=== PATIENT | female | born 2000 | race Caucasian/White ===

== ENCOUNTER 2021-01-01 15:53 | Emergency (ER) | payer BC ==
[2021-01-01 16:01] VITALS: BP 124/87; PULSE 94; RESP 18; TEMP 98.2
--- NOTE | 2021-01-01 16:24 | ED ---
General Adult HPI - General Chief complaint: ENT Stated complaint: food stuck in throat Time Seen by Provider: 01/01/21 16:09 Source: patient Mode of arrival: ambulatory Limitations: no limitations - History of Present Illness Initial comments: Dictation was produced using [employer] dictation software. please excuse any grammatical, word or spelling errors. Chief Complaint: 20-year-old female presents with foreign body sensation in the throat History of Present Illness: 20-year-old female she was making old male for her and her mother. She could've some apples. She saw the apples and felt like the apples are stuck in her throat. She tried drinking water, using water and drinking pop with no improvement. She states that her voice feels slightly scratchy. She went to the [facility] urgent care and was told to come to the emergency department for evaluation. Patient has any drooling. Denies any trouble breathing. She feels as though the apples are stuck in the area of her neck. The ROS documented in this emergency department record has been reviewed and confirmed by me. Those systems with pertinent positive or negative responses have been documented in the HPI. All other systems are other negative and/or noncontributory. PHYSICAL EXAM: General Impression: Alert and oriented x3, not in acute distress HEENT: Normocephalic atraumatic, extra-ocular movements intact, pupils equal and reactive to light bilaterally, mucous membranes moist. Cardiovascular: Heart regular rate and rhythm Chest: Able to complete full sentences, no retractions, no tachypnea Abdomen: abdomen soft, non-tender, non-distended, no organomegaly Musculoskeletal: Pulses present and equal in all extremities, no peripheral edema Motor: no focal deficits noted Neurological: CN II-XII grossly intact, no focal motor or sensory deficits noted Skin: Intact with no visualized rashes Psych: Normal affect and mood ED course: 20-year-old female presents to the emergency department for foreign body sensation in the throat. Barium swallow study shows shows normal esophagram, no foreign bodies identified. We do not have GI or ENT available at our facility. Patient would likely benefit from upper endoscopy. Case is discussed with general surgeon on-call who recommended swallow study performed by radiology department. esophagram, swallow study is unremarkable. Patient reevaluated at bedside and found to be in stable medical condition. Disposition options were discussed with patient. She states that she is agreeable for discharge and will return if she has any worsening symptoms. She is given outpatient referral to gastroenterology if she would like to be evaluated. Return precautions discussed. Patient told to monitor her symptoms. - Related Data Home Medications Medication Instructions Recorded Confirmed No Known Home Medications 01/01/21 01/01/21 Allergies Allergy/AdvReac Type Severity Reaction Status Date / Time No Known Allergies Allergy Verified 01/01/21 17:13 Review of Systems ROS Statement: Those systems with pertinent positive or pertinent negative responses have been documented in the HPI. ROS Other: All systems not noted in ROS Statement are negative. Past Medical History Past Medical History: No Reported History History of Any Multi-Drug Resistant Organisms: None Reported Past Surgical History: No Surgical Hx Reported Past Psychological History: Anxiety Smoking Status: Current every day smoker Past Alcohol Use History: Occasional Past Drug Use History: Marijuana General Exam Limitations: no limitations Course Vital Signs 01/01/21 15:58 Temperature 98.2 F Pulse Rate 94 Respiratory 18 Rate Blood Pressure 124/87 O2 Sat by Pulse 99 Oximetry Disposition Clinical Impression: Sensation of foreign body in esophagus Disposition: HOME SELF-CARE Condition: Fair Instructions (If sedation given, give patient instructions): Esophageal Foreign Body (ED) Additional Instructions: Please seek immediate medical attention if her symptoms get worse. Follow up with GI or primary care doctor if your symptoms get worse. Is patient prescribed a controlled substance at d/c from ED?: No Referrals: Alabnia Schaeffer MD [STAFF PHYSICIAN] - 1-2 days Ruth Gonzalez MD [STAFF PHYSICIAN] - 1-2 days
--- NOTE | 2021-01-01 17:54 | FL ---
EXAMINATION TYPE: FL barium swallow DATE OF EXAM: 01/01/2021 COMPARISON: None HISTORY: Ate Apple feels like it stuck TECHNIQUE: A single water-soluble contrast esophagram study is performed. FINDINGS: Fluoroscopy time: 32 seconds Images: 11 Esophagus dilates normal caliber and has normal contour the gastroesophageal junction. Gastroesophage al junction opens to a normal caliber. No intraluminal or extramural defects are evident. No filling defects are identified. Contrast passes through without hesitancy. IMPRESSIONS: 1. Normal Esophagram. No foreign bodies identified.
== END 2021-01-01 18:10 | disposition home or self-care (01) ==
LOC: EC 15:53
DX: R09.89 Other specified symptoms and signs involving the circulatory and respiratory systems (principal); F17.200 Nicotine dependence, unspecified, uncomplicated; F12.90 Cannabis use, unspecified, uncomplicated
CPT/HCPCS: 74220; 99283

== ENCOUNTER 2022-10-16 17:24 | Emergency (ER) | payer BC, OTHER ==
[2022-10-16 18:20] VITALS: BP 125/88; PULSE 99; RESP 20; TEMP 97.9
[2022-10-16] MEDS ORDERED: KETOROLAC 15 MG/ML 1 ML VIAL IM STA (18:47)
[2022-10-16] MEDS ORDERED: DEXAMETHASONE SOD PHOSPHATE 10 MG/ML 1 ML VIAL IM STA (18:47)
--- NOTE | 2022-10-16 19:15 | XR ---
EXAMINATION TYPE: XR chest 2V DATE OF EXAM: 10/16/2022 7:02 PM COMPARISON: None TECHNIQUE: XR chest 2V Frontal and lateral views of the chest. CLINICAL INDICATION:Female, 22 years old with history of chest pain; FINDINGS: Lungs/Pleura: There is no evidence of pleural effusion, focal consolidation, or pneumothorax. Pulmonary vascularity: Unremarkable. Heart/mediastinum: Cardiomediastinal silhouette is unremarkable. Musculoskeletal: No acute osseous pathology. IMPRESSION: No acute cardiopulmonary disease/process.
[2022-10-16] MEDS ORDERED: KETOROLAC 15 MG/ML 1 ML VIAL IVP STA (19:32)
[2022-10-16] MEDS ORDERED: DEXAMETHASONE SOD PHOSPHATE 10 MG/ML 1 ML VIAL IVP STA (19:32)
[2022-10-16 19:48] LABS: Basophils % (A) 1 %; Eosinophils # (A) 0.1 k/uL (0-0.7); Eosinophils % (A) 2 %; HCT 41.9 % (34.0-46.0); HGB 13.6 gm/dL (11.4-16.0); Lymphocytes % (A) 29 %; MCH 30.2 pg (25.0-35.0); MCHC 32.5 g/dL (31.0-37.0); MCV 92.9 fL (80.0-100.0); Mean Platelet Volume 8.5; Monocytes # (A) 0.4 k/uL (0-1.0); Monocytes % (A) 5 %; Neutrophils # (A) 4.4 k/uL (1.3-7.7); Neutrophils % (A) 63 %; Platelet Count 234 k/uL (150-450); RBC 4.51 m/uL (3.80-5.40); RDW 12.3 % (11.5-15.5); WBC 6.9 k/uL (3.8-10.6)
--- NOTE | 2022-10-16 19:50 | ED ---
General Adult HPI - General Chief complaint: Back Pain/Injury Stated complaint: chest/shoulder pain Time Seen by Provider: 10/16/22 18:41 Source: patient Mode of arrival: ambulatory Limitations: no limitations - History of Present Illness Initial comments: 22-year-old female presenting with chief complaint of chest and back pain ongoing for the last 3 days. Patient states that pain is sharp in nature. Pain is near the left shoulder blade and present on the left side of chest. Worse with coughing. Reproducible on palpation. Patient denies cough, shortness of breath, palpitations, leg swelling, numbness, tingling, weakness, nausea, vomiting, abdominal pain, fever, chills. - Related Data Home Medications Medication Instructions Recorded Confirmed No Known Home Medications 01/01/21 01/01/21 Allergies Allergy/AdvReac Type Severity Reaction Status Date / Time No Known Allergies Allergy Verified 10/16/22 18:20 Review of Systems ROS Statement: Those systems with pertinent positive or pertinent negative responses have been documented in the HPI. ROS Other: All systems not noted in ROS Statement are negative. Past Medical History Past Medical History: No Reported History History of Any Multi-Drug Resistant Organisms: None Reported Past Surgical History: No Surgical Hx Reported Past Psychological History: Anxiety Smoking Status: Current every day smoker Past Alcohol Use History: Occasional Past Drug Use History: Marijuana General Exam Limitations: no limitations General appearance: alert, in no apparent distress Head exam: Present: atraumatic, normocephalic, normal inspection Eye exam: Present: normal appearance, EOMI. Absent: scleral icterus, periorbital swelling Neck exam: Present: normal inspection, full ROM Respiratory exam: Present: normal lung sounds bilaterally, chest wall tenderness. Absent: respiratory distress, wheezes, rales, rhonchi, stridor Cardiovascular Exam: Present: regular rate, normal rhythm, normal heart sounds. Absent: systolic murmur, diastolic murmur, rubs, gallop, clicks Back exam: Present: normal inspection, tenderness Neurological exam: Present: alert, oriented X3, CN II-XII intact Psychiatric exam: Present: normal affect, normal mood Skin exam: Present: warm, dry, intact, normal color. Absent: rash Course Vital Signs 10/16/22 18:17 Temperature 97.9 F Pulse Rate 99 Respiratory 20 Rate Blood Pressure 125/88 O2 Sat by Pulse 100 Oximetry EKG Findings - EKG Comments: EKG Findings:: Sinus rhythm with sinus arrhythmia. Ventricular rate 66. UT interval 139. QRS 101. QT 389. QTc 402. No ST deviation or T wave inversion. Medical Decision Making - Medical Decision Making Was pt. sent in by a medical professional or institution (AMRITA Courtney, COMBINATION OPERATOR, urgent care, hospital, or senior care...) When possible be specific @ -No Did you speak to anyone other than the patient for history (EMS, parent, family, police, friend...)? What history was obtained from this source @ -No Did you review nursing and triage notes (agree or disagree)? Why? @ -I reviewed and agree with nursing and triage notes Were old charts reviewed (outside hosp., previous admission, EMS record, old EKG, old radiological studies, urgent care reports/EKG's, senior care records)? Report findings @ -No old charts were reviewed Differential Diagnosis (chest pain, altered mental status, abdominal pain women, abdominal pain men, vaginal bleeding, weakness, fever, dyspnea, syncope, headache, dizziness, GI bleed, back pain, seizure, CVA, palpatations, mental health, musculoskeletal)? @ -MDM Differential Chest Pain: Stable Angina, Unstable Angina, STEMI, NSTEMI Aortic Dissection, Pneumothorax, Musculoskeletal, Esophageal Spasm GERD, Cholecystitis, Pancreatitis, Zoster This is not meant to be an all-inclusive list. EKG interpreted by me (3pts min.). @ -As above X-rays interpreted by me (1pt min.). @ -Chest x-ray shows no acute process CT interpreted by me (1pt min.). @ -None done U/S interpreted by me (1pt. min.). @ -None done What testing was considered but not performed or refused? (CT, X-rays, U/S, labs)? Why? @ -None What meds were considered but not given or refused? Why? @ -None Did you discuss the management of the patient with other professionals (professionals i.e. AMRITA Courtney, COMBINATION OPERATOR, lab, RT, psych nurse, social media director, manager mountain, teacher, special skills officer, human services case manager)? Give summary @ -No Was smoking cessation discussed for >3mins.? @ -No Was critical care preformed (if so, how long)? @ -No Were there social determinants of health that impacted care today? How? (Homelessness, low income, unemployed, alcoholism, drug addiction, transportation, low edu. Level, literacy, decrease access to med. care, senior care, rehab)? @ -No Was there de-escalation of care discussed even if they declined (Discuss DNR or withdrawal of care, Hospice)? DNR status @ -No What co-morbidities impacted this encounter? (DM, HTN, Smoking, COPD, CAD, Cancer, CVA, ARF, Chemo, Hep., AIDS, mental health diagnosis, sleep apnea, morbid obesity)? @ -None Was patient admitted / discharged? Hospital course, mention meds given and route, prescriptions, significant lab abnormalities, going to OR and other pertinent info. @ -22-year-old female presented with chief complaint of sharp pleuritic reproducible chest pain. No lower extremity swelling. No shortness of breath. No palpitations. On physical examination pain is reproducible on palpation. Heart and lungs are clear to auscultation. Negative d-dimer and troponin. Chest x-ray is negative for acute process. EKG shows no acute findings. Patient reports improvement after Decadron. Educated on costochondritis and supportive management at home. Follow-up with PCP. Report back to ER with any new or worsening symptoms. Discussed return parameters and answered all questions. Patient conveyed verbal understanding and agreed to the plan. I discussed this case in detail with my attending Dr. Charles Undiagnosed new problem with uncertain prognosis? @ -No Drug Therapy requiring intensive monitoring for toxicity (Heparin, Nitro, Insulin, Cardizem)? @ -No Were any procedures done? @ -No Diagnosis/symptom? @ -Costochondral chest pain Acute, or Chronic, or Acute on Chronic? @ -Acute Uncomplicated (without systemic symptoms) or Complicated (systemic symptoms)? @ -Uncomplicated Side effects of treatment? @ -No Exacerbation, Progression, or Severe Exacerbation? @ -No Poses a threat to life or bodily function? How? (Chest pain, [place], [place], pneumonia, PE, COPD, DKA, ARF, appy, cholecystitis, CVA, Diverticulitis, Homicidal, Suicidal, threat to staff... and all critical care pts) @ -No - Lab Data Result diagrams: 10/16/22 19:42 10/16/22 19:42 Lab Results 10/16/22 10/16/22 10/16/22 Range/Units 19:42 19:42 19:42 WBC 6.9 (3.8-10.6) k/uL RBC 4.51 (3.80-5.40) m/uL Hgb 13.6 (11.4-16.0) gm/dL Hct 41.9 (34.0-46.0) % MCV 92.9 (80.0-100.0) fL MCH 30.2 (25.0-35.0) pg MCHC 32.5 (31.0-37.0) g/dL RDW 12.3 (11.5-15.5) % Plt Count 234 (150-450) k/uL MPV 8.5 Neutrophils % 63 % Lymphocytes % 29 % Monocytes % 5 % Eosinophils % 2 % Basophils % 1 % Neutrophils # 4.4 (1.3-7.7) k/uL Lymphocytes # 2.0 (1.0-4.8) k/uL Monocytes # 0.4 (0-1.0) k/uL Eosinophils # 0.1 (0-0.7) k/uL Basophils # 0.0 (0-0.2) k/uL D-Dimer 0.21 (<0.60) mg/L FEU Sodium 136 L (137-145) mmol/L Potassium 4.1 (3.5-5.1) mmol/L Chloride 102 (98-107) mmol/L Carbon Dioxide 24 (22-30) mmol/L Anion Gap 10 mmol/L BUN 10 (7-17) mg/dL Creatinine 0.57 (0.52-1.04) mg/dL Est GFR (CKD-EPI)AfAm >90 (>60 ml/min/1.73 sqM) Est GFR (CKD-EPI)NonAf >90 (>60 ml/min/1.73 sqM) Glucose 85 (74-99) mg/dL Calcium 8.9 (8.4-10.2) mg/dL Total Bilirubin 0.6 (0.2-1.3) mg/dL AST 25 (14-36) U/L ALT 18 (4-34) U/L Alkaline Phosphatase 52 (38-126) U/L Troponin I (0.000-0.034) ng/mL Total Protein 7.4 (6.3-8.2) g/dL Albumin 4.5 (3.5-5.0) g/dL 10/16/22 Range/Units 19:42 WBC (3.8-10.6) k/uL RBC (3.80-5.40) m/uL Hgb (11.4-16.0) gm/dL Hct (34.0-46.0) % MCV (80.0-100.0) fL MCH (25.0-35.0) pg MCHC (31.0-37.0) g/dL RDW (11.5-15.5) % Plt Count (150-450) k/uL MPV Neutrophils % % Lymphocytes % % Monocytes % % Eosinophils % % Basophils % % Neutrophils # (1.3-7.7) k/uL Lymphocytes # (1.0-4.8) k/uL Monocytes # (0-1.0) k/uL Eosinophils # (0-0.7) k/uL Basophils # (0-0.2) k/uL D-Dimer (<0.60) mg/L FEU Sodium (137-145) mmol/L Potassium (3.5-5.1) mmol/L Chloride (98-107) mmol/L Carbon Dioxide (22-30) mmol/L Anion Gap mmol/L BUN (7-17) mg/dL Creatinine (0.52-1.04) mg/dL Est GFR (CKD-EPI)AfAm (>60 ml/min/1.73 sqM) Est GFR (CKD-EPI)NonAf (>60 ml/min/1.73 sqM) Glucose (74-99) mg/dL Calcium (8.4-10.2) mg/dL Total Bilirubin (0.2-1.3) mg/dL AST (14-36) U/L ALT (4-34) U/L Alkaline Phosphatase (38-126) U/L Troponin I <0.012 (0.000-0.034) ng/mL Total Protein (6.3-8.2) g/dL Albumin (3.5-5.0) g/dL Disposition Clinical Impression: Costochondral chest pain Disposition: HOME SELF-CARE Condition: Good Instructions (If sedation given, give patient instructions): Chest Pain (ED), Costochondritis (ED) Additional Instructions: Follow-up with PCP. Report back to ER with any new or worsening symptoms. Take Motrin and Tylenol stated for pain control. Rest and stay well hydrated. Is patient prescribed a controlled substance at d/c from ED?: No Referrals: None,Stated [Primary Care Provider] - 1-2 days Time of Disposition: 20:38
[2022-10-16 20:09] LABS: ALT 18 U/L (4-34); AST 25 U/L (14-36); African American GFR (CKD) >90 (>60 ml/min/1.73 sqM); Albumin 4.5 g/dL (3.5-5.0); Alkaline Phosphatase 52 U/L (38-126); Anion Gap 10 mmol/L; Blood Urea Nitrogen 10 mg/dL (7-17); Calcium 8.9 mg/dL (8.4-10.2); Carbon Dioxide 24 mmol/L (22-30); Chloride 102 mmol/L (98-107); Glucose 85 mg/dL (74-99); Non-African American GFR(CKD) >90 (>60 ml/min/1.73 sqM); Potassium 4.1 mmol/L (3.5-5.1); Sodium 136 mmol/L (137-145); Total Bilirubin 0.6 mg/dL (0.2-1.3); Total Protein 7.4 g/dL (6.3-8.2)
== END 2022-10-16 21:16 | disposition home or self-care (01) ==
LOC: EC 17:24
DX: M94.0 Chondrocostal junction syndrome [Tietze] (principal); F17.200 Nicotine dependence, unspecified, uncomplicated; F12.90 Cannabis use, unspecified, uncomplicated; Z86.59 Personal history of other mental and behavioral disorders
CPT/HCPCS: 36415; 93005; 85379; 80053; 84484; 85025; 71046; 99283; 96372; J1100

== ENCOUNTER 2022-10-27 13:00 | Emergency (ER) | payer OTHER ==
[2022-10-27 13:20] VITALS: RESP 16
--- NOTE | 2022-10-27 13:45 | ED ---
Chest Pain HPI - General Chief Complaint: Chest Pain Stated Complaint: chest pain Time Seen by Provider: 10/27/22 13:25 Source: patient, RN notes reviewed Mode of arrival: ambulatory Limitations: no limitations - History of Present Illness Initial Comments: Patient is a 22-year-old female presented to ER with chief complaint of chest pain. Patient was seen on for the same complaint and was diagnosed with costochondritis. Patient was advised to take Tylenol and Motrin for symptoms. Patient states she has not been taking anything at home since her last ER visit for the pain. Patient presents today for the same complaints. She states this started with left shoulder blade pain with pain radiating down her left arm. Today she complains of left neck pain denies any injury, denies any numbness or tingling in her left upper extremity at this time. She describes the pain as constant 4/10 achy pain and occasional sharp 7/10 pain when she hiccups/coughs/ of takes a deep breath/ presses on her chest. She endorses associated shortness of breath with deep inspiration. Patient denies any cardiac or pulmonary history. Denies any current medications. Patient admits to vaping. Patient denies any headaches, cough, congestion, fevers, chills, and night sweats, abdominal pain, constipation, diarrhea, or peripheral edema. - Related Data Previous Rx's Medication Instructions Recorded predniSONE 50 mg PO DAILY #5 tab 10/27/22 Allergies Allergy/AdvReac Type Severity Reaction Status Date / Time No Known Allergies Allergy Verified 10/16/22 18:20 Review of Systems ROS Statement: Those systems with pertinent positive or pertinent negative responses have been documented in the HPI. ROS Other: All systems not noted in ROS Statement are negative. EKG Findings - EKG Comments: EKG Findings:: EKG from at 13:28 sinus rhythm rate of 78 NV 129/99 QT/QTC 395/428 - EKG Results: EKG: interpreted by BRETT Past Medical History Past Medical History: No Reported History History of Any Multi-Drug Resistant Organisms: None Reported Past Surgical History: No Surgical Hx Reported Past Psychological History: Anxiety Smoking Status: Current every day smoker, Vaper Past Alcohol Use History: Occasional Past Drug Use History: Marijuana General Exam Limitations: no limitations General appearance: alert, in no apparent distress Neck exam: Present: normal inspection, tenderness (C7 tenderness ). Absent: meningismus, lymphadenopathy Respiratory exam: Present: normal lung sounds bilaterally. Absent: respiratory distress, wheezes, rales, rhonchi, stridor Cardiovascular Exam: Present: regular rate, normal rhythm, normal heart sounds, other (tender on palpitation of left and right chest wall). Absent: systolic murmur, diastolic murmur, rubs, gallop, clicks Extremities exam: Present: normal inspection, full ROM, normal capillary refill. Absent: tenderness, pedal edema, joint swelling, calf tenderness Back exam: Present: paraspinal tenderness (mild cervical paraspinal tenderness; ) Neurological exam: Present: alert, oriented X3, CN II-XII intact Skin exam: Present: warm, dry, intact, normal color. Absent: rash Course Vital Signs 10/27/22 13:17 Temperature 98.6 F Pulse Rate 78 Respiratory 16 Rate Blood Pressure 125/79 O2 Sat by Pulse 97 Oximetry Chest Pain MDM - MDM Was pt. sent in by a medical professional or institution (, PA, MARKETING SUPPORT SPECIALIST, urgent care, hospital, or [facility]...) When possible be specific @ -No Did you speak to anyone other than the patient for history (EMS, parent, family, police, friend...)? What history was obtained from this source @ -No Did you review nursing and triage notes (agree or disagree)? Why? @ -I reviewed and agree with nursing and triage notes Were old charts reviewed (outside hosp., previous admission, EMS record, old EKG, old radiological studies, urgent care reports/EKG's, [facility] records)? Report findings @ -Reviewed recent laboratory studies and EKG and chest x-ray Differential Diagnosis (chest pain, altered mental status, abdominal pain women, abdominal pain men, vaginal bleeding, weakness, fever, dyspnea, syncope, headache, dizziness, GI bleed, back pain, seizure, CVA, palpatations, mental health, musculoskeletal)? @ -Differential Chest Pain: Stable Angina, Unstable Angina, STEMI, NSTEMI Aortic Dissection, Pneumothorax, Musculoskeletal, Esophageal Spasm GERD, Cholecystitis, Pancreatitis, Zoster, this is not meant to be an all-inclusive list. licable EKG interpreted by me (3pts min.). @ -As above X-rays interpreted by me (1pt min.). @ -None done CT interpreted by me (1pt min.). @ -None done U/S interpreted by me (1pt. min.). @ -None done What testing was considered but not performed or refused? (CT, X-rays, U/S, labs)? Why? @ -Patient refuses chest x-ray What meds were considered but not given or refused? Why? @ -None Did you discuss the management of the patient with other professionals (eric sorto i.e. , PA, MARKETING SUPPORT SPECIALIST, lab, RT, psych nurse, criminal justice social worker, stocking inspector, teacher, animal control officer, senior case manager)? Give summary @ -No Was smoking cessation discussed for >3mins.? @ -No Was critical care preformed (if so, how long)? @ -No Were there social determinants of health that impacted care today? How? (Homelessness, low income, unemployed, alcoholism, drug addiction, transportation, low edu. Level, literacy, decrease access to med. care, penitentiary, rehab)? @ -No Was there de-escalation of care discussed even if they declined (Discuss DNR or withdrawal of care, Hospice)? DNR status @ -No What co-morbidities impacted this encounter? (DM, HTN, Smoking, COPD, CAD, Cancer, CVA, ARF, Chemo, Hep., AIDS, mental health diagnosis, sleep apnea, morbid obesity)? @ -None Was patient admitted / discharged? Hospital course, mention meds given and route, prescriptions, significant lab abnormalities, going to OR and other pertinent info. @ -Discharge patient presented for chest wall pain patient had recent workup which was negative workup including labs EKG is unremarkable. Patient's had reproducible chest wall pain. Patient states we discharged with steroid symptoms or symptoms. Return parameters were discussed. Undiagnosed new problem with uncertain prognosis? @ -No Drug Therapy requiring intensive monitoring for toxicity (Heparin, Nitro, Insulin, Cardizem)? @ -No Were any procedures done? @ -No Diagnosis/symptom? @ -Chest wall. Acute, or Chronic, or Acute on Chronic? @ -Acute Uncomplicated (without systemic symptoms) or Complicated (systemic symptoms)? @ -Uncomplicated Side effects of treatment? @ -No Exacerbation, Progression, or Severe Exacerbation? @ -No Poses a threat to life or bodily function? How? (Chest pain, [place], [place], pneumonia, PE, COPD, DKA, ARF, appy, cholecystitis, CVA, Diverticulitis, Homicidal, [place] icidal, threat to staff... and all critical care pts) @ -No Disposition Clinical Impression: Chest wall pain Disposition: HOME SELF-CARE Condition: Stable Instructions (If sedation given, give patient instructions): Costochondritis (ED), Chest Pain (ED) Additional Instructions: Please return to the Emergency Department if symptoms worsen or any other concerns. Prescriptions: predniSONE 50 mg PO DAILY #5 tab Is patient prescribed a controlled substance at d/c from ED?: No Referrals: Nonstaff,Physician [Primary Care Provider] - 1-2 days Time of Disposition: 15:08
[2022-10-27 14:27] LABS: Basophils % (A) 0 %; Eosinophils # (A) 0.1 k/uL (0-0.7); Eosinophils % (A) 2 %; HCT 43.4 % (34.0-46.0); HGB 14.5 gm/dL (11.4-16.0); Lymphocytes # (A) 1.8 k/uL (1.0-4.8); Lymphocytes % (A) 30 %; MCH 30.7 pg (25.0-35.0); MCHC 33.4 g/dL (31.0-37.0); MCV 92.1 fL (80.0-100.0); Mean Platelet Volume 8.2; Monocytes # (A) 0.3 k/uL (0-1.0); Monocytes % (A) 5 %; Neutrophils # (A) 3.6 k/uL (1.3-7.7); Neutrophils % (A) 61 %; Platelet Count 291 k/uL (150-450); RBC 4.71 m/uL (3.80-5.40)
[2022-10-27 14:52] LABS: ALT 16 U/L (4-34); AST 21 U/L (14-36); African American GFR (CKD) >90 (>60 ml/min/1.73 sqM); Albumin 4.9 g/dL (3.5-5.0); Alkaline Phosphatase 49 U/L (38-126); Anion Gap 8 mmol/L; Blood Urea Nitrogen 8 mg/dL (7-17); Calcium 9.7 mg/dL (8.4-10.2); Carbon Dioxide 28 mmol/L (22-30); Chloride 103 mmol/L (98-107); Glucose 88 mg/dL (74-99); Magnesium 1.9 mg/dL (1.6-2.3); Non-African American GFR(CKD) >90 (>60 ml/min/1.73 sqM); Potassium 3.7 mmol/L (3.5-5.1); Sodium 139 mmol/L (137-145); Total Bilirubin 0.9 mg/dL (0.2-1.3); Total Protein 8.2 g/dL (6.3-8.2)
[2022-10-27 15:22] VITALS: BP 120/85; PULSE 79; TEMP 97.6
== END 2022-10-27 15:36 | disposition home or self-care (01) ==
LOC: EC 13:00
DX: R07.89 Other chest pain (principal); Z86.59 Personal history of other mental and behavioral disorders; F17.290 Nicotine dependence, other tobacco product, uncomplicated; F12.90 Cannabis use, unspecified, uncomplicated
CPT/HCPCS: 36415; 80053; 83735; 84484; 85025; 85379; 93005; 99285

== ENCOUNTER 2024-06-06 14:10 | Emergency (ER) | payer OTHER ==
--- NOTE | 2024-06-06 14:29 | ED ---
General Adult HPI - General Chief complaint: Overdose Stated complaint: overdose Time Seen by Provider: 06/06/24 14:13 Source: patient, RN notes reviewed Mode of arrival: EMS Limitations: no limitations - History of Present Illness Initial comments: 23-year-old female presents to the emergency department for evaluation of overdose symptoms. Patient was checking into [facility]. They noted that she had decreased responsiveness. Patient was seen by EMS to the ED for evaluation. According to paramedics the patient was responding ap propriately and therefore Narcan was not administered. - Related Data Home Medications Medication Instructions Recorded Confirmed No Known Home Medications 06/06/24 06/06/24 Allergies Allergy/AdvReac Type Severity Reaction Status Date / Time No Known Allergies Allergy Verified 06/06/24 16:10 Review of Systems ROS Statement: Those systems with pertinent positive or pertinent negative responses have been documented in the HPI. ROS Other: All systems not noted in ROS Statement are negative. Past Medical History Past Medical History: No Reported History History of Any Multi-Drug Resistant Organisms: None Reported Past Surgical History: No Surgical Hx Reported Past Psychological History: Anxiety Smoking Status: Current every day smoker, Vaper Past Alcohol Use History: Occasional Past Drug Use History: Cocaine, Opiates General Exam Limitations: altered mental status, physical limitation General appearance: appears intoxicated, obtunded Head exam: Present: atraumatic, normocephalic, normal inspection Eye exam: Present: PERRL, EOMI. Absent: scleral icterus, conjunctival injection, periorbital swelling ENT exam: Present: normal exam, mucous membranes moist Respiratory exam: Present: normal lung sounds bilaterally. Absent: respiratory distress, wheezes, rales, rhonchi, stridor Cardiovascular Exam: Present: regular rate, normal rhythm, normal heart sounds. Absent: systolic murmur, diastolic murmur, rubs, gallop, clicks GI/Abdominal exam: Present: soft. Absent: distended, tenderness, guarding, rebound, rigid Extremities exam: Present: normal inspection, full ROM, normal capillary refill. Absent: tenderness, pedal edema, joint swelling, calf tenderness Back exam: Present: normal inspection Course Vital Signs 06/06/24 06/06/24 06/06/24 14:20 14:38 17:45 Temperature 98 F 99.0 F Pulse Rate 78 99 Respiratory 16 13 20 Rate Blood Pressure 96/61 119/84 O2 Sat by Pulse 97 96 Oximetry 06/06/24 18:39 Temperature Pulse Rate 116 H Respiratory 14 Rate Blood Pressure 126/76 O2 Sat by Pulse 98 Oximetry Medical Decision Making - Medical Decision Making Was pt. sent in by a medical professional or institution (AMRITA Courtney, [employer], urgent care, hospital, or [facility]...) When possible be specific @ -[[facility]] Did you speak to anyone other than the patient for history (EMS, parent, family, police, friend...)? What history was obtained from this source @ -[No] Did you review nursing and triage notes (agree or disagree)? Why? @ -[I reviewed and agree with nursing and triage notes] Were old charts reviewed (outside hosp., previous admission, EMS record, old EKG, old radiological studies, urgent care reports/EKG's, [facility] records)? Report findings @ -[No old charts were reviewed] Differential Diagnosis (chest pain, altered mental status, abdominal pain women, abdominal pain men, vaginal bleeding, weakness, fever, dyspnea, syncope, headache, dizziness, GI bleed, back pain, seizure, CVA, palpatations, mental health, musculoskeletal)? @ -[Differential Altered Mental Status: Hypoglycemia, DKA, hypercapnia, ETOH, overdose, CO poisoning, trauma, myxedema coma, HTN encephalopathy, infection, encephalitis, psychosis, intercranial hemorrhage, hepatic encephalopathy, meningitis, CVA, this is not meant to be an all-inclusive list ] EKG interpreted by me (3pts min.). @ -[EKG at 2005 presents rhythm rate 96, WI 129, QRS 102, QT/QTc 4 034 57] X-rays interpreted by me (1pt min.). @ -[None done] CT interpreted by me (1pt min.). @ -[None done] U/S interpreted by me (1pt. min.). @ -[None done] What testing was considered but not performed or refused? (CT, X-rays, U/S, labs)? Why? @ -[None] What meds were considered but not given or refused? Why? @ -[None] Did you discuss the management of the patient with other professionals (professionals i.e. AMRITA Courtney, [employer], lab, RT, psych nurse, social media specialist, plan manager, teacher, executive vice president and chief operating officer, manager case)? Give summary @ -[No] Was smoking cessation discussed for >3mins.? @ -[No] Was critical care preformed (if so, how long)? @ -[No] Were there social determinants of health that impacted care today? How? (Homelessness, low income, unemployed, alcoholism, drug addiction, transportation, low edu. Level, literacy, decrease access to med. care, snf, rehab)? @ -[No] Was there de-escalation of care discussed even if they declined (Discuss DNR or withdrawal of care, Hospice)? DNR status @ -[No] What co-morbidities impacted this encounter? (DM, HTN, Smoking, COPD, CAD, Cancer, CVA, ARF, Chemo, Hep., AIDS, mental health diagnosis, sleep apnea, morbid obesity)? @ -[None] Was patient admitted / discharged? Hospital course, mention meds given and route, prescriptions, significant lab abnormalities, going to OR and other pertinent info. @ -[Patient presented to the emergency department for drug overdose. According to paramedics the patient responsive but had decreased level of consciousness. On my initial evaluation the patient was unresponsive to sternal rub and decreased respiratory drive. She was administered 0.4mg of narcan. Patient minimally responsive after narcan administered oriented to person. Laboratory studies obtained. WBC 12.4, hemoglobin 13.7. negative salicylates, acetaminophen.Patients mother arrived and refused further intervention. Recommended obtaining urine sample which the mother and patient initially refused. ] Undiagnosed new problem with uncertain prognosis? @ -[No] Drug Therapy requiring intensive monitoring for toxicity (Heparin, Nitro, Insulin, Cardizem)? @ -[No] Were any procedures done? @ -[No] Diagnosis/symptom? @ -[drug overdose] Acute, or Chronic, or Acute on Chronic? @ -[acute] Uncomplicated (without systemic symptoms) or Complicated (systemic symptoms)? @ -[complicated] Side effects of treatment? @ -[No] Exacerbation, Progression, or Severe Exacerbation? @ -[No] Poses a threat to life or bodily function? How? (Chest pain, USA, ND, pneumonia, PE, COPD, DKA, ARF, appy, cholecystitis, CVA, Diverticulitis, Homicidal, Suicidal, threat to staff... and all critical care pts) @ -[drug overdose] - Lab Data Result diagrams: 06/06/24 14:56 06/06/24 14:56 Lab Results 06/06/24 06/06/24 06/06/24 Range/Units 14:56 14:56 18:29 WBC 12.4 H (3.8-10.6) k/uL RBC 4.63 (3.80-5.40) m/uL Hgb 13.7 (11.4-16.0) gm/dL Hct 41.5 (34.0-46.0) % MCV 89.5 (80.0-100.0) fL MCH 29.5 (25.0-35.0) pg MCHC 32.9 (31.0-37.0) g/dL RDW 12.4 (11.5-15.5) % Plt Count 293 (150-450) k/uL MPV 7.1 Neutrophils % 65 % Lymphocytes % 25 % Monocytes % 5 % Eosinophils % 3 % Basophils % 1 % Neutrophils # 8.1 H (1.3-7.7) k/uL Lymphocytes # 3.1 (1.0-4.8) k/uL Monocytes # 0.7 (0-1.0) k/uL Eosinophils # 0.3 (0-0.7) k/uL Basophils # 0.1 (0-0.2) k/uL Sodium 140 (137-145) mmol/L Potassium 4.3 (3.5-5.1) mmol/L Chloride 102 (98-107) mmol/L Carbon Dioxide 30 (22-30) mmol/L Anion Gap 8 mmol/L BUN 17 (7-17) mg/dL Creatinine 0.68 (0.52-1.04) mg/dL Est GFR (CKD-EPI)AfAm >90 (>60 ml/min/1.73 sqM) Est GFR (CKD-EPI)NonAf >90 (>60 ml/min/1.73 sqM) Glucose 63 L (74-99) mg/dL Calcium 9.7 (8.4-10.2) mg/dL Total Bilirubin 0.5 (0.2-1.3) mg/dL AST 39 H (14-36) U/L ALT 26 (4-34) U/L Alkaline Phosphatase 59 (38-126) U/L Total Protein 7.6 (6.3-8.2) g/dL Albumin 4.4 (3.5-5.0) g/dL Urine Color Yellow Urine Appearance Clear (Clear) Urine pH 5.5 (5.0-8.0) Ur Specific Umpire 1.028 (1.001-1.035) Urine Protein Negative (Negative) Urine Glucose (UA) Negative (Negative) Urine Ketones Trace H (Negative) Urine Blood Negative (Negative) Urine Nitrite Negative (Negative) Urine Bilirubin Negative (Negative) Urine Urobilinogen <2.0 (<2.0) mg/dL Ur Leukocyte Esterase Negative (Negative) Salicylates <1.0 mg/dL Urine Opiates Screen Detected H (NotDetected) Ur Oxycodone Screen Not Detected (NotDetected) Urine Methadone Screen Not Detected (NotDetected) Acetaminophen <10.0 ug/mL Ur Barbiturates Screen Not Detected (NotDetected) U Tricyclic Antidepress Detected H (NotDetected) Ur Phencyclidine Scrn Not Detected (NotDetected) Ur Amphetamines Screen Detected H (NotDetected) U Methamphetamines Scrn Detected H (NotDetected) U Benzodiazepines Scrn Detected H (NotDetected) Urine Cocaine Screen Detected H (NotDetected) U Marijuana (THC) Screen Not Detected (NotDetected) Disposition Clinical Impression: Drug overdose Disposition: HOME SELF-CARE Condition: Stable Instructions (If sedation given, give patient instructions): Adult Overdose (E D) Additional Instructions: Please follow up with [facility] for rehab. Return to the emergency department for new or worsening symptoms. Is patient prescribed a controlled substance at d/c from ED?: No Referrals: Nonstaff,Physician [Primary Care Provider] - 1-2 days
[2024-06-06] MEDS: NALOXONE 0.4 MG/ML 1 ML VIAL IVP STA ×2 (14:38→17:45)
[2024-06-06 15:10] LABS: Basophils # (A) 0.1 k/uL (0-0.2); Basophils % (A) 1 %; Eosinophils # (A) 0.3 k/uL (0-0.7); Eosinophils % (A) 3 %; HCT 41.5 % (34.0-46.0); HGB 13.7 gm/dL (11.4-16.0); Lymphocytes # (A) 3.1 k/uL (1.0-4.8); Lymphocytes % (A) 25 %; MCH 29.5 pg (25.0-35.0); MCHC 32.9 g/dL (31.0-37.0); MCV 89.5 fL (80.0-100.0); Mean Platelet Volume 7.1; Monocytes # (A) 0.7 k/uL (0-1.0); Monocytes % (A) 5 %; Neutrophils # (A) 8.1 k/uL (1.3-7.7); Neutrophils % (A) 65 %; Platelet Count 293 k/uL (150-450); RBC 4.63 m/uL (3.80-5.40); RDW 12.4 % (11.5-15.5); WBC 12.4 k/uL (3.8-10.6)
[2024-06-06 15:16] LABS: ALT 26 U/L (4-34); AST 39 U/L (14-36); Acetaminophen <10.0 ug/mL; African American GFR (CKD) >90 (>60 ml/min/1.73 sqM); Albumin 4.4 g/dL (3.5-5.0); Alkaline Phosphatase 59 U/L (38-126); Anion Gap 8 mmol/L; Blood Urea Nitrogen 17 mg/dL (7-17); Calcium 9.7 mg/dL (8.4-10.2); Carbon Dioxide 30 mmol/L (22-30); Chloride 102 mmol/L (98-107); Glucose 63 mg/dL (74-99); Non-African American GFR(CKD) >90 (>60 ml/min/1.73 sqM); Potassium 4.3 mmol/L (3.5-5.1); Salicylate <1.0 mg/dL; Sodium 140 mmol/L (137-145); Total Bilirubin 0.5 mg/dL (0.2-1.3); Total Protein 7.6 g/dL (6.3-8.2)
[2024-06-06 18:35] VITALS: TEMP 99
[2024-06-06 18:41] LABS: Appearance,Urine Clear (Clear); Bilirubin,Urine Negative (Negative); Blood,Urine Negative (Negative); Color,Urine Yellow; Glucose,Urine (UA) Negative (Negative); Ketones,Urine Trace (Negative); Leukocyte Esterase,Urine Negative (Negative); Nitrite,Urine Negative (Negative); PH, Urine 5.5 (5.0-8.0); Protein,Urine Negative (Negative); Specific Gravity,Urine 1.028 (1.001-1.035); Urobilinogen,Urine <2.0 mg/dL (<2.0)
[2024-06-06 18:55] VITALS: BP 126/76; PULSE 116; RESP 14
[2024-06-06 19:05] LABS: Amphetamine Screen,Urine Detected (NotDetected); Barbiturate Screen,Urine Not Detected (NotDetected); Benzodiazepines Screen,Urine Detected (NotDetected); Cocaine Screen,Urine Detected (NotDetected); Methadone Screen, Urine Not Detected (NotDetected); Opiate Screen,Urine Detected (NotDetected); Oxycodone Screen, Urine Not Detected (NotDetected); Phencyclidine Screen,Urine Not Detected (NotDetected); Tricyclic Antidepressant,Urine Detected (NotDetected); Urn Cannabinoid Scrn Not Detected (NotDetected)
== END 2024-06-06 20:36 | disposition home or self-care (01) ==
LOC: EC 14:10
DX: T65.91XA Toxic effect of unspecified substance, accidental (unintentional), initial encounter (principal); F17.290 Nicotine dependence, other tobacco product, uncomplicated
CPT/HCPCS: 36415; 93005; 80053; 85025; 81003; 80306; 80143; 80179; 99284; 96374; J2310